=== PATIENT | female | born 1980 | race Caucasian/White ===

== ENCOUNTER 2021-04-14 10:34 | Emergency (ER) | payer SELFPAY ==
[~2021-04-14] VITALS: Ht 157.5 cm; Wt 116.4 kg
[2021-04-14] MEDS ORDERED: LIBRAX CAPSULE1 CAP PO (11:18)
[2021-04-14 11:19] LABS: MEAN CELL VOLUME 85 fl (80.0-100.0); MEAN CORPUSCULAR HEMOGLOBIN 29 pg (27-31); MEAN CORPUSCULAR HGB CONC 33 g/dl (33.0-37.0); MEAN PLATELET VOLUME 10.7 fl (7.4-10.4); PLATELET COUNT 301 K/mm3 (130-400); RED BLOOD COUNT 5.27 M/mm3 (4.10-5.30); REDCELL DISTRIBUTION WIDTH-CV 14.7 % (11.5-14.5)
[2021-04-14] MEDS ORDERED: ALDACTONE 25MG25 M1 PO (11:19)
[2021-04-14] MEDS ORDERED: ABILIFY 15MG TA15 MG PO (11:19)
[2021-04-14] MEDS ORDERED: AMITRIPTYLINE H25 M1 PO (11:21)
[2021-04-14] MEDS ORDERED: LASIX 40MG TABL40 MG PO (11:22)
[2021-04-14] MEDS ORDERED: PEPCID 20MG TAB20 MG PO (11:23)
[2021-04-14] MEDS ORDERED: SINEQUAN 1100 MG/CAP PO (11:24)
[2021-04-14] MEDS ORDERED: NEURONTIN600 MG/TAB PO (11:24)
[2021-04-14] MEDS ORDERED: NEXIUM 24HR20 M1 PO (11:25)
[2021-04-14] MEDS ORDERED: ZOFRAN 4MG T4 MG/TAB PO (11:25)
[2021-04-14] MEDS ORDERED: TOPAMAX50 MG PO (11:26)
[2021-04-14] MEDS ORDERED: SYNTHROID0.05 MG/TA PO (11:26)
[2021-04-14] MEDS ORDERED: D3-5050000 IU PO (11:27)
[2021-04-14] MEDS ORDERED: ZYRTEC 10MG10 MG PO (11:27)
[2021-04-14] MEDS ORDERED: VITAMINC1000TA (11:28)
[2021-04-14] MEDS ORDERED: NATURAL MAGNES200 MG PO (11:28)
[2021-04-14] MEDS ORDERED: TURMERIC500 MG PO (11:29)
[2021-04-14] MEDS ORDERED: PHARMASSURE ZIN50 MG PO (11:30)
[2021-04-14] MEDS ORDERED: RIBOFLAVIN400 MG PO (11:30)
[2021-04-14 11:36] LABS: ALANINE AMINOTRANSFERASE 47 U/L (0-55); ALBUMIN 4.2 gm/dL (3.5-5.0); ALKALINE PHOSPHATASE 105 U/L (40-150); ANION GAP 10 mmol/L (7-16); AST,SGOT 37 U/L (5-34); BILIRUBIN,TOTAL 0.6 mg/dL (0.2-1.2); BLOOD UREA NITROGEN 8 mg/dL (7-19); CALCIUM 9.3 mg/dL (8.4-10.2); CARBON DIOXIDE 24 mmol/L (22-29); CHLORIDE 109 mmol/L (98-107); CREATININE, serum 0.83 mg/dL (0.57-1.11); GLUCOSE 80 mg/dL (70-99); POTASSIUM 3.1 mmol/L (3.5-4.5); SODIUM 143 mmol/L (136-145); TOTAL PROTEIN 7.5 gm/dL (6.2-8.1)
[2021-04-14 11:45] LABS: TROPONIN-I < 0.010 ng/mL (0.00-0.033)
[2021-04-14 14:05] VITALS: BP 131/90; PULSE 65; TEMP 98.5
== END 2021-04-15 14:04 | disposition home or self-care (01) ==
LOC: COL.ER 10:34
PROVIDERS: Physician Assistant
DX: I24.9 Acute ischemic heart disease, unspecified (principal); R51.9 Headache, unspecified; F17.210 Nicotine dependence, cigarettes, uncomplicated
CPT/HCPCS: J0780; J1885; J2405

== ENCOUNTER 2022-04-02 13:58 | Inpatient (IN) | payer BC ==
[~2022-04-02] VITALS: Ht 157.5 cm; Wt 101.4 kg
[~2022-04-02 13:58] MED LIST: ABILIFY 15MG TA15 MG PO; ALDACTONE 25MG25 M1 PO; AMITRIPTYLINE H25 M1 PO; D3-5050000 IU PO; LASIX 40MG TABL40 MG PO; LIBRAX CAPSULE1 CAP PO; NATURAL MAGNES200 MG PO; NEURONTIN600 MG/TAB PO; NEXIUM 24HR20 M1 PO; PEPCID 20MG TAB20 MG PO; PHARMASSURE ZIN50 MG PO; RIBOFLAVIN400 MG PO; SINEQUAN 1100 MG/CAP PO; SYNTHROID0.05 MG/TA PO; TOPAMAX50 MG PO; TURMERIC500 MG PO; VITAMINC1000TA; ZOFRAN 4MG T4 MG/TAB PO; ZYRTEC 10MG10 MG PO
[2022-04-02 14:24] LABS: BASO # 0.1 K/mm3 (0.0-0.2); BASO % 0.8 % (0.0-2.0); EOS # 0.2 K/mm3 (0.0-0.7); EOS % 2.5 % (0.0-4.0); GRAN # 4.8 K/mm3 (1.4-6.5); GRAN % 65.8 % (42.2-75.2); HEMATOCRIT 42.7 % (37.0-47.0); HEMOGLOBIN 14.3 g/dl (12.5-16.0); LYMPH # 1.7 K/mm3 (1.2-3.4); LYMPH % 22.9 % (20.0-51.0); MEAN CELL VOLUME 89 fl (80.0-100.0); MEAN CORPUSCULAR HEMOGLOBIN 30 pg (27-31); MEAN CORPUSCULAR HGB CONC 34 g/dl (33.0-37.0); MEAN PLATELET VOLUME 10.5 fl (7.4-10.4); MONO # 0.6 K/mm3 (0.1-0.6); MONO % 7.7 % (1.7-9.3); PLATELET COUNT 327 K/mm3 (130-400); RED BLOOD COUNT 4.82 M/mm3 (4.10-5.30); REDCELL DISTRIBUTION WIDTH-CV 13.1 % (11.5-14.5)
[2022-04-02 14:36] LABS: ALBUMIN 3.7 gm/dL (3.5-5.0); ANION GAP 8 mmol/L (7-16); BLOOD UREA NITROGEN 10 mg/dL (7-19); CALCIUM 9.4 mg/dL (8.4-10.2); CARBON DIOXIDE 25 mmol/L (22-29); CHLORIDE 108 mmol/L (98-107); CREATININE, serum 0.88 mg/dL (0.57-1.11); GLUCOSE 110 mg/dL (70-99); MAGNESIUM 2.2 mg/dL (1.6-2.6); PHOSPHOROUS 3.2 mg/dL (2.3-4.7); POTASSIUM 3.8 mmol/L (3.5-4.5); SODIUM 141 mmol/L (136-145)
[2022-04-02 14:44] LABS: TROPONIN-I < 0.010 ng/mL (0.00-0.033)
[2022-04-02] MEDS ORDERED: KAPSPARGO SPRIN25 MG PO (17:41)
[2022-04-02 17:50] VITALS: BP 118/78; PULSE 63; TEMP 98.2
[2022-04-02 18:08] LABS: C-REACTIVE PROTEIN 0.74 mg/dL (0.00-0.50)
--- NOTE | 2022-04-02 19:06 | NUR ---
PATIENT ADMITTED TO ROOM 308 FROM ER. PATIENT IS ALERT AND ORIENTED X4. DENIES PAIN. LUNGS CTA. CARDIAC CATH SCHEDULED FOR TOMORROW. ORIENTED TO ROOM. NPO AT MIDNIGHT. AT BEDSIDE. DENIES NEEDS. CALL LIGHT WITHIN REACH.
[2022-04-02 19:46] VITALS: BP 115/74; PULSE 55; TEMP 98.1
[2022-04-02 22:54] VITALS: BP 128/74; PULSE 62; TEMP 97.9
[2022-04-03] VITALS (18 sets, daily range): BP systolic 93–122; BP diastolic 48–78; PULSE 46–64; TEMP 97.3–98.3
--- NOTE | 2022-04-03 02:17 | NUR ---
PATIENT ASSESSED AND GIVEN NIGHTLY MEDICATIONS. 7/10 CHEST PAIN MOST OF NIGHT SO FAR, GIVEN MORPHINE 2X, TYLENOL 1X AND ZOFRAN 1X. NPO SINCE MIDNIGHT, PLANNED HEART CATH TODAY. LATEST EF IS 35%. SHE IS ANXIOUS FOR THIS PROCEDURE HER MOTHER IN [place] CODED DURING HER HEART CATH AND . TSH- 42.777. CALL LIGHT IN REACH. BED IN LOWEST POSITION. SHE WAS ENCOURAGED TO USE HER CALL LIGHT WHEN AMBULATING SINCE SHE HAS BEEN GETTING MORPHINE, SHE IS AWARE OF THIS.
[2022-04-03 06:31] LABS: BASO # 0.1 K/mm3 (0.0-0.2); BASO % 0.8 % (0.0-2.0); EOS # 0.2 K/mm3 (0.0-0.7); EOS % 1.8 % (0.0-4.0); GRAN # 4.7 K/mm3 (1.4-6.5); GRAN % 56.2 % (42.2-75.2); HEMATOCRIT 46.6 % (37.0-47.0); HEMOGLOBIN 15.4 g/dl (12.5-16.0); LYMPH # 2.8 K/mm3 (1.2-3.4); LYMPH % 33.5 % (20.0-51.0); MEAN CELL VOLUME 90 fl (80.0-100.0); MEAN CORPUSCULAR HEMOGLOBIN 30 pg (27-31); MEAN CORPUSCULAR HGB CONC 33 g/dl (33.0-37.0); MEAN PLATELET VOLUME 10.4 fl (7.4-10.4); MONO # 0.6 K/mm3 (0.1-0.6); MONO % 7.5 % (1.7-9.3); PLATELET COUNT 367 K/mm3 (130-400); REDCELL DISTRIBUTION WIDTH-CV 13.1 % (11.5-14.5)
[2022-04-03 06:50] LABS: CALCIUM 9.8 mg/dL (8.4-10.2); CREATININE, serum 1.07 mg/dL (0.57-1.11); POTASSIUM 3.5 mmol/L (3.5-4.5)
--- NOTE | 2022-04-03 07:40 | NUR ---
Shift assessment complete. Pt alert awake in recliner, Telemetry on, sinus ely. INT site to RT AC no redness, swelling, or drainage. BLE edema with pitting +1. Pt reports no pain at this time.
--- NOTE | 2022-04-03 10:13 | NUR ---
SEE MERGE FOR ALL MEDICATION ADMINISTRATION, INTERVENTIONS, AND ETCO2, AND VITALS.
--- NOTE | 2022-04-03 10:49 | NUR ---
SHIFT ASSESSMENT COMPLETED AND MORNING MEDICATIONS ADMINISTERED PER ORDER. PATIENT IS ALERT AND ORIENTED X4. INITIALLY COMPLAINED OF A HEADACHE 10/10, TREATED WITH PRN APAP, BUT STATED TO PROVIDER SHE WAS NOT HAVING PAIN. DENIES ANY NEEDS. DOWN IN TICKER WIRER AT THIS TIME.
--- NOTE | 2022-04-03 11:09 | NUR ---
PATIENT RETURNED FROM CARDIAC CATH AT APPROX 1045. VSS. PATIENT NOTED TO BE CRYING AND STATES SHE IS HAVING SEVERE PAIN FROM HER CATH PROCEDURE. PATIENT HAS PRN IV MORPHINE ORDERED, HOWEVER, HER HEART RATE HAS BEEN LOW- CARDIOLOGY PAGED TO SEE IF PATIENT IS OKAY TO GET IV MORPHINE AT THIS TIME, AWAITING RETURN CALL.
--- NOTE | 2022-04-03 11:26 | NUR ---
DR. LARA ON FLOOR, UPDATED ON PATIENT'S PAIN TO CATH SITE. CATH SITE IS NOT SWOLLEN OR FIRM AT THIS TIME, PULSES PALPABLE. PER DR. LARA, RN CAN PLACE A K-PAD ON THE SITE, AND GIVE 25MG BENEDRYL AND 12.5 MCG FENTANYL X1 FOR PAIN. PATIENT CAN ALSO HAVE AN AHA DIET.
--- NOTE | 2022-04-03 12:33 | NUR ---
PATIENT STATES HER PAIN HAS IMPROVED, DOES NOT WANT TO RATE PAIN ON A SCALE OF 1-10, BUT STATES SHE IS FEELING GOOD.
--- NOTE | 2022-04-03 14:18 | NUR ---
SW met with patient to complete intake and discuss discharge plan. Patients Ar ([phone]) is present at bedside. Patient lives at home with her in [place]. She is fully independent with her ADL's and IADL's. She has no DME or home oxygen needs. PCP is Dr. Amaris Oneal and she utilizes [facility] pharmacy in [place] for prescriptions. Patient does not have a DP- established and does not wish to create one at this time. She is planning on returning home with Ar once medically ready. Discharge plan: Home
--- NOTE | 2022-04-03 14:56 | NUR ---
ATTEMPTED TO REMOVE ADDITIONAL 5ML OF AIR, PATIENT NOTED TO HAVE SMALL AMOUNT OF BLOOD NOTED TO SITE, AIR REINSTILLED, WILL REASSESS IN 30 MINUTES TO AN HOUR.
--- NOTE | 2022-04-03 15:57 | NUR ---
PATIENT DENIES PAIN AT THIS TIME. PATIENT IS SLEEPY BUT EASILY AROUSABLE.
--- NOTE | 2022-04-03 17:10 | NUR ---
FULL AIR RELEASED FROM RADIAL BAND, NO BLEEDING NOTED, BAND AID APPLIED. PATIENT ENCOURAGED TO RESTRICT MOVEMENT OF RIGHT EXTREMITIY AND TO NOT PUT PRESSURE ON SITE. VSS. DENIES FURTHER NEEDS. CALL LIGHT WITHIN REACH.
--- NOTE | 2022-04-03 18:54 | NUR ---
INITIAL 1600 MEWS SCORE NOTED TO BE 3, VITAL SIGNS REASSESSED AND SCORE IS NOW 1. PATIENT SLEEPING AT THIS TIME, EASY TO AROUSE. NO BLEEDING NOTED TO CATH SITE.
[2022-04-04] VITALS (10 sets, daily range): BP systolic 92–118; BP diastolic 38–75; PULSE 42–71; TEMP 97.4–98.3
[2022-04-04 06:59] LABS: BASO # 0.1 K/mm3 (0.0-0.2); BASO % 0.8 % (0.0-2.0); EOS # 0.2 K/mm3 (0.0-0.7); EOS % 2.5 % (0.0-4.0); GRAN # 3.5 K/mm3 (1.4-6.5); GRAN % 55.1 % (42.2-75.2); HEMATOCRIT 42.2 % (37.0-47.0); HEMOGLOBIN 13.7 g/dl (12.5-16.0); LYMPH # 2.1 K/mm3 (1.2-3.4); LYMPH % 32.4 % (20.0-51.0); MEAN CELL VOLUME 92 fl (80.0-100.0); MEAN CORPUSCULAR HEMOGLOBIN 30 pg (27-31); MEAN CORPUSCULAR HGB CONC 33 g/dl (33.0-37.0); MEAN PLATELET VOLUME 10.4 fl (7.4-10.4); MONO # 0.6 K/mm3 (0.1-0.6); MONO % 8.9 % (1.7-9.3); PLATELET COUNT 297 K/mm3 (130-400); RED BLOOD COUNT 4.61 M/mm3 (4.10-5.30); REDCELL DISTRIBUTION WIDTH-CV 13.2 % (11.5-14.5)
[2022-04-04 07:18] LABS: CREATININE, serum 0.9 mg/dL (0.57-1.11); POTASSIUM 4.1 mmol/L (3.5-4.5)
[2022-04-04] MEDS ORDERED: ASPIRIN E.C. 8181 MG PO (09:17)
[2022-04-04] MEDS ORDERED: LIPITOR 40MG TA40 MG PO (09:17)
--- NOTE | 2022-04-04 09:28 | NUR ---
Initial visit; Pony Ride Attendant introduced herself to patient inquiring if she could pray for her or keep her in Pony Ride Attendant's prayers. Patient declined Spiritual Care. Pony Ride Attendant wished Danielle well.
--- NOTE | 2022-04-04 14:28 | NUR ---
SEE MERGE FOR ALL VITALES, ETCO2, MEDICATIONS AND INTERVENTIONS
--- NOTE | 2022-04-04 16:41 | NUR ---
PER CARDIOLOGY.PATIENT PACEMAKER NEEDS DOWNLOADED TOMORROW MORNING 04/05/22 AT 0700.
[2022-04-05 03:27] VITALS: BP 126/71; PULSE 65; TEMP 98.2
--- NOTE | 2022-04-05 06:42 | NUR ---
pt c/o jolting pain in left chest starting after up to restroom for the 1st time last evening. morphine 2mg given IV with good results, ice pack placed, pt able to rest. woke up around 0100, again, in extreme pain, was yelling out for help. morphine given IV, ice pack replaced, able to calm down afterwards and rest. a paced on tele. EKG done this am.
[2022-04-05] MEDS ORDERED: CEPHALEXIN500 M1 PO (07:30)
[2022-04-05 07:58] LABS: BASO # 0.1 K/mm3 (0.0-0.2); BASO % 0.5 % (0.0-2.0); EOS # 0.1 K/mm3 (0.0-0.7); GRAN # 7.6 K/mm3 (1.4-6.5); GRAN % 73.6 % (42.2-75.2); HEMATOCRIT 48.9 % (37.0-47.0); HEMOGLOBIN 16.2 g/dl (12.5-16.0); LYMPH # 1.8 K/mm3 (1.2-3.4); LYMPH % 17.8 % (20.0-51.0); MEAN CELL VOLUME 90 fl (80.0-100.0); MEAN CORPUSCULAR HEMOGLOBIN 30 pg (27-31); MEAN CORPUSCULAR HGB CONC 33 g/dl (33.0-37.0); MONO # 0.7 K/mm3 (0.1-0.6); MONO % 6.8 % (1.7-9.3); PLATELET COUNT 318 K/mm3 (130-400); RED BLOOD COUNT 5.43 M/mm3 (4.10-5.30); REDCELL DISTRIBUTION WIDTH-CV 13.4 % (11.5-14.5)
[2022-04-05 08:02] LABS: CALCIUM 9.4 mg/dL (8.4-10.2); CREATININE, serum 0.84 mg/dL (0.57-1.11); POTASSIUM 3.8 mmol/L (3.5-4.5)
[2022-04-05 08:11] VITALS: BP 96/51; PULSE 67; TEMP 98.1
[2022-04-05] MEDS ORDERED: SYNTHROID0.05 MG/TA PO (08:19)
[2022-04-05 11:27] VITALS: BP 113/66; PULSE 69; TEMP 97.5
--- NOTE | 2022-04-05 11:44 | NUR ---
Reviewed education for chronic heart failure. Reviewed [facility] CHF Zone handout, with emphasis on daily weights, obtaining dry weights, monitoring for edema, shortness of breath, decreased endurance, or feeling full when eating less. Reviewed importance of medication compliance with all prescribed medications and when to call your medical provider (CHF Zones). Patient verbalized understanding. Patient s EF is 35-40% which may qualify for for Cardiac Rehab. Staff will reach out to [facility] and send Referral to [facility] if pt does qualify with patient's permission. Upon completetion of education and as staff exited room, pt state's "I'm having a hot flash" - Staff notified RN desk.
--- NOTE | 2022-04-05 16:38 | NUR ---
PATIENT HAD XRAY RIGHT BEFORE DISCHARGE. ERIC GONZÁLES FROM CARDIOLOGY CALLED TO INFORM THIS NURSE AT 1223 THE XRAY LOOKED GOOD AND WAS OKAY TO DISCHARGE HOME.
--- NOTE | 2022-04-05 16:41 | NUR ---
PATIENT WAS ADMITTED BACK TO THE HOSPITAL AT 1600 DUE TO HAVING A PNEUMOTHORAX.
[2022-04-05 17:56] VITALS: BP 121/81; PULSE 75; TEMP 98.3
--- NOTE | 2022-04-05 18:49 | NUR ---
NOTIFIED DR DANIELS OF CHEST XRAY INFORMATION FROM RADIOLOGY. WAITING TO SEE THE CHEST XRAY TOMORROW MORNING TO SEE IF IT IMPROVES.
[2022-04-05 19:36] VITALS: BP 115/73; PULSE 72; TEMP 97.3
--- NOTE | 2022-04-05 20:00 | NUR ---
THERE IS NO OUTPUT FROM THE PATIENT'S CHEST TUBE AT THIS TIME. SHE STATES SHE IS HAVING A LOT OF PAIN JUST UNDER THE LEFT BREAST. SUCTION SET TO 20CM. WILL CONTINUE TO MONITOR.
[2022-04-06] VITALS (8 sets, daily range): BP systolic 93–114; BP diastolic 53–79; PULSE 60–97; TEMP 97.4–98.3
--- NOTE | 2022-04-06 06:00 | NUR ---
THE PATIENT HAD AN EVENTFUL NIGHT, TO START WITH WAS HAVING ZERO OUTPUT FROM HER CHEST TUBE. CONTACTED DR. DANIELS WHO ORDERED A STAT CHEST XRAY. THE CHEST XRAY WAS ADVERSE, AND HE CALLED FOR THE PATIENT TO GO BACK TO OR AND HAVE A NEW CHEST TUBE PLACED. NEW CHEST TUBE WAS PLACED, AND THERE HAS BEEN MINIMAL OUTPUT <10ML SINCE PLACEMENT. THE PATIENT HAS HAD SIGNIFICANT PAIN. PAIN MANAGEMENT PROVIDED PER MAR THROUGH THE NIGHT. NO OTHER CONCERNS.
[2022-04-07] VITALS (7 sets, daily range): BP systolic 87–117; BP diastolic 48–63; PULSE 62–80; TEMP 97.6–98.5
[2022-04-07 06:33] LABS: BASO # 0.1 K/mm3 (0.0-0.2); BASO % 0.9 % (0.0-2.0); EOS # 0.3 K/mm3 (0.0-0.7); EOS % 3.8 % (0.0-4.0); GRAN # 4.3 K/mm3 (1.4-6.5); GRAN % 62.3 % (42.2-75.2); HEMATOCRIT 37.7 % (37.0-47.0); LYMPH # 1.6 K/mm3 (1.2-3.4); LYMPH % 23.5 % (20.0-51.0); MEAN CELL VOLUME 89 fl (80.0-100.0); MEAN CORPUSCULAR HEMOGLOBIN 30 pg (27-31); MEAN CORPUSCULAR HGB CONC 34 g/dl (33.0-37.0); MEAN PLATELET VOLUME 10.5 fl (7.4-10.4); MONO # 0.7 K/mm3 (0.1-0.6); MONO % 9.4 % (1.7-9.3); PLATELET COUNT 249 K/mm3 (130-400); RED BLOOD COUNT 4.24 M/mm3 (4.10-5.30); REDCELL DISTRIBUTION WIDTH-CV 13.1 % (11.5-14.5)
[2022-04-07 06:41] LABS: CREATININE, serum 0.82 mg/dL (0.57-1.11); POTASSIUM 3.9 mmol/L (3.5-4.5)
[2022-04-07 06:52] LABS: HEMOGLOBIN 12.7 g/dl (12.5-16.0)
--- NOTE | 2022-04-07 08:00 | NUR ---
Patient is resting in bed, alert and oriented, states she put herself NPO. She states she do not want lovenox shots. Assessment completed, left site chest tube in place, locked. Denies any pain at this time. Continue monitoring. Call light within reach. Family member at the bedside.
--- NOTE | 2022-04-07 09:30 | NUR ---
Call from INSIDE SALES RECRUITER stating pt complains of pain. Dr Sewell just had starting low suction on her chest. Patient asked for pain medication, tramadol IV provided, Pt states she is fine at this time, asked her to call in pain is not released. Call light within reach.
--- NOTE | 2022-04-07 09:50 | NUR ---
Patient's medications provided, asked about her pain and states she is doing ok. Patient eating a cookies and cream cake brought by her . Patient calm with no signs of pain distress.
--- NOTE | 2022-04-07 12:00 | NUR ---
Recieved a call from patient's mother yelling and stating we do not provide pain medication to pt, and complaining of care. This nurse attending another pt at this time.
--- NOTE | 2022-04-07 12:15 | NUR ---
Checking patient she states this nurse did not provide the pain medication needed. No calls received from her previosly. PT refuses pain medication at this time and asks for another nurse. Report given to NIVIA Feliciano.
--- NOTE | 2022-04-07 12:40 | NUR ---
REPORT RECIEVED. UPON ENTERING THE ROOM, THE PATIENT IS SETTING UP IN THE CHAIR , SPEAKING ON THE PHONE. EMBROIDERY PATTERNMAKER COMPLETED. WHEN ASKING THE PATIENT TO RATE HER PAIN, ON A SCALE OF 1-10 WITH 10 BEING SEVERE PAIN. PATIENT STATED "ON A SCALE OF 1-10, IM AT A 10 WITH IRRITATION." I INFORMED THE PATIENT I UNDERSTAND SHE IS UPSET, BUT THAT THINGS WILL GET BETTER, AND AT THIS TIME I WOULD LIKE TO ASSESS HER PAIN SO WE CAN MANAGE HER PAIN AND COMFORT LEVEL. PATIENT STATED "ITS A 10 ITS SO BAD." I INOFRMED HER OF HER MEDICATION OPTIONS AND MY RECCOMENDATIONS. CALL [facility] IN REACH.
--- NOTE | 2022-04-07 12:40 | NUR ---
WHILE DOING INITIAL ASSESSMENT, AND CHECKING PATINETS INCISION SITES, THE PATIENT KEPT TALKING OVER THIS RN. ANYTIME I TRIED TO EDUCATE HER SHE SPOKE OVER ME OR SAID THE OPPOSITE THAT I SAID. 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 SO IM NO DUMMY TO WHATS GOING ON." PATIENT HAD THIS RN IN HER ROOM FOR OVER 20 MINUTES WHILE SHE CONTINUED TO SPEAK POORLY OF ALL DOCTORS AND EACH PROCEDURE DONE. THIS RN TRIED TO REDIRECT BY ENSURING HER THAT EVERY DAY IS A NEW DAY, ALL OF THAT IS PASSED AND SHE SHOULD FOCUS ON RECOVERY AND FEELING BETTER. PATIENT RESTING IN THE RECLINER.
--- NOTE | 2022-04-07 15:09 | NUR ---
PATIENT COMPLAINING OF 6 OUT OF 10 PAIN. IV MEDICATOIN GIVEN, SEE EMAR.
--- NOTE | 2022-04-07 15:56 | NUR ---
PATIENT REQUESTED TO SPEAK WITH THIS RN. ASKED MULTIPLE TIMES FOR HER LASIX TABLET. I INFORMED HER IT IS DUE AT 2100. PATIENT REPLIED "WELL THATS STUPID, WHY WOULD THEY DO THAT?" I INFORMED HER IT IS SCHEDULED TO BE TWICE A DAY WHICH WE USUALLY SCHEDULE FOR 9 AM AND 9PM. THEN PATIENT ASKED "WHY AM I GETTING LOVENOX? I INFORMED HER OF ITS USES. PATIENT DISAGREED AND STATED SHE SHOULD NOT BE ON IT BECAUSE OF HER PREVIOUS CHEST TUBE INCISION SITE BLEEDING. I INFORMED HER THE PHYSICIANS ARE AWARE OF HER PREVIOUS SITE AND STILL FIND IT BETTER FOR HER TO BE ON A VTE PROPHALXIS. I ALSO INFORMED THE PATIENT IF SHE WOULD LIKE I COULD CALL AND SPEAK TO THE SURGEON TO CLARIFY OR SHE CAN ALSO REFUSE THE LOVENOX IF IT MAKES HER THAT UNCOMFORTABLE, PATIENT DECLINED AND STATED SHE WILL "JUST TAKE IT."
--- NOTE | 2022-04-07 18:25 | NUR ---
PATIENT PAIN REASSESSED, PATIENT STATED SHE IS HAVING 8/10 PAIN. MEDICATIO GIVEN, SEE EMAR. PATIENT VOICED BEING CONTENT AND VERBALIZED PAIN CONTROLLED WELL THIS SHIFT. LUNG SOUNDS REASSESSED. PREVIOUS CHEST TUBE SITE DRESSING CHANGED. NO CREPITUS NOTED. CALL [facility] [place].
--- NOTE | 2022-04-07 18:25 | NUR ---
PAIENT AWAKE AND ALERT, RESTING IN BED. NO NEEDS OR COMPLAINTS AT THIS TIME. PATIENT VOICED FEELING THOUGH HER PAIN HAS BEEN MANAGED WELL. LUNG SUNDS PRESENT UPPER LOBES BILATERALLY. CHEST TUBE INTACT AND STILL ON SUCTION SET BY DR KNOX THIS AM. CALL LIGHT WITH IN REACH
--- NOTE | 2022-04-07 19:33 | NUR ---
SPOKE WITH CRAFT WORKER DILMA AND INFORMED HER THIS RN IS NOT FAMILIAR WITH CHEST TUBES, HOWEVER PATIENT HAS A DRESSING TO A PREVIOUS CHEST TUBE SITE. ON ASSESSMENT (BY TAKING A QUICK PICK UNDER THE EDGE OF THE ELASTICON) THERE LOOKS TO BE GAUZE THAT IS BLOODY, A TEGADERM, NO BLOOD LEAKING FROM TEGADERM, AND THEN A PRESSURE DRESSING OF CLEAN DRY GAUZE AND ELASTICON. DOES THIS NEED TO BE CHANGED? PER CRAFT WORKER IF THE PRESSURE DRESSING IS IN PLACE AND IT IS NOT LEKAING OUT THE DRESSING IS FINE.
[2022-04-08] VITALS (7 sets, daily range): BP systolic 91–118; BP diastolic 51–82; PULSE 57–68; TEMP 97.5–98.6
--- NOTE | 2022-04-08 07:30 | NUR ---
Patient laying in bed, A&Ox4, drowsy. Reports pain in LF chest, pain medication given by prior nurse. VSS. IV CDI. LF chest pacemaker and chest tube site CDI. K pad to back. Chest tube intact, LIS, water seal. Call light within reach.
--- NOTE | 2022-04-08 07:40 | NUR ---
Dr Laws discontinued suction from chest tube
--- NOTE | 2022-04-08 08:00 | NUR ---
Patient refusing to wear a yellow gown, yellow socks and having a bed alarm on. States she is not wearing the yellow gown and knows what it means. Patient states that she is not a fall risk
--- NOTE | 2022-04-08 12:32 | NUR ---
Vest Busheler rounds: Patient in bed and in recliner. 's name is Ar. Patient and stated that they have had a "traumatizing" week because of a chest tube that Patient said was the wrong size. Initially Patient came to the hospital to meet her scarf and anneal operator and have a pacemaker placed. Patient stated that she was "passed off" by her scarf and anneal operator to another doctor (Gianluca). After that, another doctor (Cruz) and his clothing sales assistant Obi inserted a chest tube without sufficient pain medication, causing her to be in great pain. Ar stated that he felt as if they were "torturing" his . Patient said that she would rather than go through what she is going through now. As Patient described her experiences in the hospital this past week, she used the word "suffer" several times. 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 Patient described an incident with a nurse (Barrington) in which the nurse asked her if she was refusing medications. Patient said that she was "not refusing shit" and ordered the nurse out of her room. Patient said that her Mother called the hospital about having the nurse removed from Patient's care. On Saturday (04-06-2022) someone named Vinita visited Patient. Patient believes Vinita is a "medical assistant supervisor." However, this visit was prior to the incident on Saturday with the nurse. Patient stated that no one in a supervisory/administrative role has spoken with her about the incident with the nurse (Barrington). Vest Busheler discussed with Patient and that today is Saturday and more staff would be available throughout the weekdays to discuss these kinds of topics than on the weekends. Patient did compliment the PACU nurse, but she could not remember the PACU nurse's name. She had to go to the PACU because the chest tube was the wrong size, which caused her to have no lung sounds for four (4) hours. Patient also stated that she had accidentally left a psych medication on her med list while reviewing it with one of the nurses. Patient stated that the psych medication was helping her cope with everything that has happened. Patient asked for prayer. Vest Busheler listened to her first. Vest Busheler prayed for the possibility of a transfer to another hospital because it seems "trust has been broken." After that, Vest Busheler prayed for peace and comfort and healing and rebuilding of trust for the Patient, her , and the Mother. Vest Busheler explained to Patient and that Vest Busheler would contact the Ditcher as well as let the rest of the Vest Busheler team know what Patient told Vest Busheler so that care could continue through the week. Patient thanked Vest Busheler for listening to her. Patient was sitting up on the bed with the help of her as Vest Busheler was leaving the room. Patient declined Vest Busheler's offer to have a nurse come to assist. met with the Ditcher within the half hour after completing this visit.
--- NOTE | 2022-04-08 12:43 | NUR ---
PATIENT'S PARTNER CAME UP TO THIS RN AT THE NURSE'S STATION AND STATED "WE NEED THE LUNG DOCTOR." THIS RN ASKED FAMILY MEMBER WHAT HIS CONCERN WAS, TO WHICH HE REPLIED "SHE IS HAVING A LOT OF PAIN SINCE THEY CHANGED HER CHEST TUBE." THIS RN WENT TO PATIENT'S BEDSIDE, PATIENT STATES SHE HAS BEEN HAVING PAIN AND SHORTNESS OF BREATH SINCE HER CHEST TUBE WAS REMOVED FROM SUCTION THIS MORNING. PATIENT NOT NOTED TO HAVE LABORED BREATHING. LUNGS CTA, NO CREPITUS NOTED, CHEST TUBE DRESSING INTACT. PATIENT REQUESTING CHEST XRAY. PATIENT'S RN, VINNY UPDATED REGARDING PATIENT'S CONCERNS AND REQUEST FOR CHEST XRAY. VINNY RN IN ROOM AT THIS TIME DISCUSSING PATIENT'S CONCERNS WITH PATIENT AND . PATIENT NOT IN ACUTE DISTRESS AT THIS TIME.
--- NOTE | 2022-04-08 12:50 | NUR ---
Nurse went into the patients room with SABIHA Rivera to assess the patient. Patient sitting up in bed eating lunch. A&Ox4. VSS 100% on room air. No signs of respiratory distress. Patient is able to have a conversation with the nurses. This nurse informed the patient that she did have a phone conversation with the mother. This nurse informed the patient to call this nurse for any questions, concerns and request. This nurse also communicated the importance of checking the patients BP before administering pain medication. Patient BP has been hypotensive. Call light within reach.
--- NOTE | 2022-04-08 12:55 | NUR ---
This GRANTS ANALYST accompanied NIVIA Smith into pts room. Pt shows no signs of distress. Pts O2 sat obtained and WNL of 100% No c/o SOB, respiratory distress, or CP. NIVIA Smith provided pt education to press call light when having pain. PRN pain medication administered. No further request at this time. Call light within reach.
[2022-04-09 00:05] VITALS: BP 113/72; PULSE 68; TEMP 97.6
[2022-04-09 04:41] VITALS: BP 100/53; PULSE 62; TEMP 97.4
--- NOTE | 2022-04-09 06:23 | NUR ---
PT requested prn axiety med last noc, Dr Pan ordered one time dose of ativan, pt able to sleep most of the noc, pain controlled with po and iv meds, reports sm bm after miralax and colace given prior to dinner. CXR this am. CT to water seal, dsgs intact.
[2022-04-09 07:27] VITALS: BP 102/58; PULSE 62; TEMP 97.4
--- NOTE | 2022-04-09 09:25 | NUR ---
Assessment complete. A/O x4. Sitting up on side of bed eating breakfast. Chest tube to water seal- no bubbling noted in canister- scan amount of drainage noted in container. Dressing CDI. Dressing to orginial chest tube site removed and replacd with bandaid. Incision without bleeding, drainage or redness. Bruising noted to left chest and breast area. Reports pain to chest tube site 8/10 and requests pain medication.
--- NOTE | 2022-04-09 09:34 | NUR ---
[place] 1 tablet administered po for c/o pain to chest tube site.
--- NOTE | 2022-04-09 10:48 | NUR ---
Pt reports having a small bowel movement since Miralax and Colace yesterday. Miralax and colace administered po for constipation.
--- NOTE | 2022-04-09 10:52 | NUR ---
Chest tube valve closed and tube clamp, per MD order. Pt continues to rates pain 8/10 and voices frustration that prn dilaudid was discontinued. Pt uses curse words with voice elevated. Reassured patient that this nurse was here to advocate for her and that her frustrations could be voiced in a civialized manner. Offered to contact the physician in regards to the dilaudid and she request something for anxiety as well. Dr. Cotto notified of the situation and pt's request for dilaudid and anxiety medication. New orders received.
[2022-04-09 11:17] VITALS: BP 112/82; PULSE 85; TEMP 97.7
--- NOTE | 2022-04-09 11:35 | NUR ---
PCT reports low SpO2 levels when checking scheduled VS. Upon entry to room pt SpO2 in the 70% range on RA. Pt placed on an oxymask and SpO2 increased to 100%. Reports left side chest pain that radiates to her shoulder with SOA. Respiratory Therapy notified. KAPIL Berry notified.
--- NOTE | 2022-04-09 11:36 | NUR ---
Abbey calls to report EKG has been ordered. Updated her on patient's status. Respiratory Therapy at bedside.
--- NOTE | 2022-04-09 12:03 | NUR ---
EKG completed. Abbey notified.
--- NOTE | 2022-04-09 12:10 | NUR ---
Abbey requests this nurse to have Dr. Gonsalves be notified.
--- NOTE | 2022-04-09 12:14 | NUR ---
Spoke with Dr. Gonsalves and rec'd order for stat chest x-ray at 1212. Called Fox in radiology to notify of stat chest x-ray order.
--- NOTE | 2022-04-09 12:18 | NUR ---
Klonopin adminsitered po for c/o anxiety- KAPIL Potter aware that dose is being administered and is agreeable.
--- NOTE | 2022-04-09 12:41 | NUR ---
X-Ray at bedside.
--- NOTE | 2022-04-09 12:58 | NUR ---
Dr. Gonsalves notified of chest x-ray results and now at patient's bedside.
--- NOTE | 2022-04-09 14:19 | NUR ---
Toradol administered IVP as ordered. Pt continues to rate pain 8/10. at bedside.
[2022-04-09 15:19] VITALS: BP 100/58; PULSE 71; TEMP 97.4
--- NOTE | 2022-04-09 15:39 | NUR ---
Pt calls to request pain medication for c/o 09/27 pain to chest tube site. [place] administered po. Margaux Bonilla RN at bedside visiting patient.
--- NOTE | 2022-04-09 16:43 | NUR ---
Pt up in wu ambulating independently.
--- NOTE | 2022-04-09 17:04 | NUR ---
Pt sitting at the side of the bed. Rates pain 5/10. Dr. Gonsalves calls to request CXR- he'll be in after clinic to remove chest tube and plans to have the patient medicated 1/2 hour prior to removal. Called Radiology and spoke to Fox and he will be up in 20 minutes to get chest x-ray.
--- NOTE | 2022-04-09 17:21 | NUR ---
Chest x-ray completed- awaiting results.
--- NOTE | 2022-04-09 18:00 | NUR ---
Dilaudid 0.25mg administered IVP as ordered- Dr. Gonsalves to come in to remove chest tube.
--- NOTE | 2022-04-09 18:20 | NUR ---
Dr. Gonsalves at bedside- removing chest tube.
--- NOTE | 2022-04-09 18:45 | NUR ---
Pt standing up in room visiting with family upon entry to room. Rates pain 5/10. Rated pain prior to chest tube removal 3/10. Pt pleasant at this time. Denies SOA. This nurse had an additional nurse at bedside with each visit throughout this shift.
[2022-04-09 20:01] VITALS: BP 110/70; PULSE 73; TEMP 97.6
[2022-04-09] MEDS ORDERED: ENTRESTO 24 MG1 EACH PO (20:41)
--- NOTE | 2022-04-09 20:50 | NUR ---
DISCHARGE ORDERS REC'D, INSTRUCTIONS GIVEN TO PT, CONTACTED RENÉ DICK, FOR ENTRESTO SCRIPT, SHE WILL SEND TO PHARMACY. IV IN RAC DC'D, BENADRYL AND COLD WASH CLOTHS HELPED WITH SKIN IRRITATION FROM ADHESIVE REMOVAL. OLD CHEST TUBE SITE DSGS CDI. PACEMAKER DSG CDI. PT AMBULATED TO EXIT ACCOMPANIED BY THIS RN WITH ALL HER BELONGINGS. HOME WITH SPOUSE.
== END 2022-04-09 20:50 | disposition home or self-care (01) | DRG 243 ==
LOC: COL.ER 13:58 → MEDICAL 16:37
PROVIDERS: Emergency Medicine; Physician Assistant; ADMIT Hospitalist
PROC: 0JH606Z Insertion of Pacemaker, Dual Chamber into Chest Subcutaneous Tissue and Fascia, Open Approach (ICD-10-PCS; principal; 2022-04-04)
PROC: 02H63JZ Insertion of Pacemaker Lead into Right Atrium, Percutaneous Approach (ICD-10-PCS; 2022-04-04)
PROC: 02HK3JZ Insertion of Pacemaker Lead into Right Ventricle, Percutaneous Approach (ICD-10-PCS; 2022-04-04)
PROC: 4A023N7 Measurement of Cardiac Sampling and Pressure, Left Heart, Percutaneous Approach (ICD-10-PCS; 2022-04-04)
PROC: B2111ZZ Fluoroscopy of Multiple Coronary Arteries using Low Osmolar Contrast (ICD-10-PCS; 2022-04-04)
PROC: 0W9B30Z Drainage of Left Pleural Cavity with Drainage Device, Percutaneous Approach (ICD-10-PCS; 2022-04-05)
DX: R00.1 Bradycardia, unspecified (principal); I31.9 Disease of pericardium, unspecified; J93.9 Pneumothorax, unspecified; Z68.41 Body mass index [BMI] 40.0-44.9, adult; I51.4 Myocarditis, unspecified; I42.8 Other cardiomyopathies; E03.9 Hypothyroidism, unspecified; E78.5 Hyperlipidemia, unspecified; F31.9 Bipolar disorder, unspecified; M54.50 Low back pain, unspecified; G89.29 Other chronic pain; R91.1 Solitary pulmonary nodule; G43.909 Migraine, unspecified, not intractable, without status migrainosus; K21.9 Gastro-esophageal reflux disease without esophagitis; E66.9 Obesity, unspecified; Z86.73 Personal history of transient ischemic attack (TIA), and cerebral infarction without residual deficits; Z79.890 Hormone replacement therapy; Z79.899 Other long term (current) drug therapy; Z87.891 Personal history of nicotine dependence
CPT/HCPCS: OP; A7041; C1769; C1785; C1894; C1898; G0378; J0690; J1170; J1200; J1644; J1650; J1885; J1940; J2250; J2270; J2405; J3010; J7030; Q9967